=== PATIENT | female | born 1960 | race Caucasian/White ===

== ENCOUNTER 2023-07-14 13:30 | Emergency (ER) | payer BC, SELFPAY ==
[2023-07-14 13:31] VITALS: BP 136/89
[2023-07-14 13:45] LABS: % Basophils 0.6 % (0-2); % Eosinophils 1.3 % (0-6); % Immature Granulocytes 0.3 % (0-0.5); % Lymphocytes 16.4 % (20.5-51.1); % Neutrophils 72.4 % (42.2-75.2); Absolute Basophils 0.1 10^3/uL (0-0.2); Absolute Eosinophils 0.1 10^3/uL (0-0.7); Absolute Lymphocytes 1.6 10^3/uL (1.2-3.4); Absolute Monocytes 0.9 10^3/uL (0.1-0.6); Absolute Neutrophils 7.1 10^3/uL (1.4-6.5); Hematocrit 39.8 % (37.0-47.0); Hemoglobin 14.1 g/dL (12.0-16.0); Mean Corp Hgb Conc. 35.4 g/dL (33.0-37.0); Mean Corpuscular Hgb 33.4 pg (27.0-31.0); Mean Corpuscular Volume 94.3 fL (81.0-99.0); Mean Platelet Volume 9.9 fL (7.4-10.4); Nucleated Red Blood Cells % 0 %; Platelet Count 210 10^3/uL (130-400); Red Blood Cell Count 4.22 10^6/uL (4.20-5.40); White Blood Cell Count 9.8 10^3/uL (4.8-10.8)
[2023-07-14 14:06] LABS: ALT (SGPT) 14 U/L (0-35); AST (SGOT) 18 U/L (14-36); Albumin 4.4 g/dl (3.5-5.0); Alkaline Phosphatase 65 U/L (38-126); Blood Urea Nitrogen 13 mg/dl (7-17); Calcium 9.4 mg/dl (8.4-10.2); Carbon Dioxide 28 mmol/L (22-30); Chloride 104 mmol/L (98-107); Glucose 107 mg/dl (70-99); Lipase 118 U/L (23-300); Sodium 136 mmol/L (135-145); Total Bilirubin 0.8 mg/dl (0.2-1.3); Total Protein 6.9 g/dl (6.3-8.2); eGFR > 60.00
--- NOTE | 2023-07-14 16:09 | EDRN ---
Dr. Nuñez in room w/ pt.
--- NOTE | 2023-07-14 16:11 | ED.GENMED ---
History of Present Illness
General
Chief Complaint: Abdominal Pain
Source: patient and family
Exam Limitations: none
Time Seen by Provider: 07/14/23 16:00
Nursing documentation reviewed up to this point in time: agreed with
Travel History
Have you had any contact with someone who has COVID-19?: No
Do you have any symptoms of coronavirus? Fever > 100 degrees, chills, cough, shortness of breath, sore throat, loss of taste or smell, muscle aches, or headache?: No
History of Present Illness
History of Present Illness:
63-year-old female presents with abdominal symptoms for about 2 weeks she is felt bloated past day or so she is lost her appetite had a fever has pain in her right greater than left lower abdomen somewhat reminiscent of her prior diverticulitis,
several episodes never seen a surgeon states she is up-to-date with her colonoscopies, no dysuria or frequency, she has had 3 C-sections, no other surgeries does not drink or smoke
Past History
Past History
ED Past Medical History: NIDDM, Hypothyroidism, Other (Migraines) and Other (divverticulitis); Negative IDDM
ED Past Surgical History: (X3) and Orthopedic (L knee Orthoscopic surgery)
Social History
Tobacco: Non-smoker
Alcohol: None
Drug: None
Personal:
Living: with family
Employment: Employed
Family History
Family History: Hypertension
Review of Systems
Review of Systems
All Other Systems: ROS reviewed and negative except as documented in HPI and ROS
Constitutional: Reports fever
ABD/GI: Reports abdominal pain and anorexia
Phy Exam
Physical Exam
Physical Exam:
Physical Exam
General: no apparent distress, not acutely ill
Neck: No jaundice
Heart: s1/s2 regular rate and rhythm, no murmur. equal radial pulses.
Lungs: no acute respiratory distress. clear bilaterally
Abdomen: Tender in the right greater than left lower
Neuro: alert and oriented. no focal neurological deficits
Skin: no rash
Psychiatric: well kept. interactive and cooperative
Extremities: no edema.
Course
Orders/Labs/Results
Orders:
Orders
07/14/23 13:36
Comprehensive Metabolic Panel Urgent
Lipase Urgent
07/14/23 13:37
Complete Blood Count/With Diff Urgent
07/14/23 16:07
CT Abd/Pel (IV only)-DH only Urgent
Comment:
Reason For Exam: pain
Urinalysis Reflex To Culture Urgent
0.9% Sodium Chloride 1000 ml [Nss] 1,000 ml IV BOLUS
HYDROmorphone [Dilaudid] 0.5 mg IV NOW STA
Ketorolac [Toradol] 15 mg IV NOW STA
Ondansetron Injectable [Zofran] 4 mg IV NOW STA
07/14/23 18:04
LevoFLOXacin [Levaquin] 500 mg PO NOW STA
MetroNIDAZOLE [Flagyl] 250 mg PO NOW STA
Abnormal Lab Results
07/14/23 07/14/23
13:36 13:37
MCH 33.4 H pg
(27.0-31.0)
Absolute Neuts (auto) 7.1 H 10^3/uL
(1.4-6.5)
Absolute Monos (auto) 0.9 H 10^3/uL
(0.1-0.6)
Lymphocytes % 16.4 L %
(20.5-51.1)
Glucose 107 H mg/dl
(70-99)
07/14/23 13:37
07/14/23 13:36
Vital Signs
Initial and Last Documented VS:
Initial Vital Signs
Temp Pulse Resp BP Pulse Ox
99.4 F 91 16 136/89 98
07/14/23 13:31 07/14/23 13:31 07/14/23 13:31 07/14/23 13:31 07/14/23 13:31
Last Documented Vital Signs
Temp Pulse Resp BP Pulse Ox
99.4 F 79 16 103/65 97
07/14/23 13:31 07/14/23 16:25 07/14/23 16:25 07/14/23 16:25 07/14/23 16:25
MDM/Problems Addressed
Differential Diagnosis Includes:
Diverticulitis appendicitis colitis
MDM/Problems Addressed:
Abdominal
Chronic conditions affecting care:
Diverticular
Chronic conditions affecting care: Previous abdomnial surgery
Acute Exacerbation and/or Progression of Chronic Illness: Previous abdomnial surgery
*Radiology
Radiology exam reviewed: preliminary read by ED provider
*Pulse Oximetry
Patient hypoxic: no
*Critical Care Note
Total Time (30-74mins, 75-104mins- exclusive of procedures): Not Applicable
Update Note
Update Note:
Update, CT noted, reviewed with patient she was actually scheduled for surgery for Dr. Burrows but canceled it due to COVID
She is anxious to go home abdomen soft she is feeling much better
ED Attending Note
-
Portions of this chart may have been created with voice recognition software.� Occasional wrong word or��sound alike� substitutions may have occurred due to the inherent limitations of voice recognition software.
Discharge Plan
Departure
Patient Disposition: Home (Routine Discharge)
Date of Disposition: 07/14/23
Time of Disposition: 18:05
Patient with high blood pressure during this ER visit?: No
Condition: Good
Discharge Problem:
Diverticulitis
Instructions: Diverticulitis (DC)
Prescriptions:
New
metronidazole 250 mg tablet
250 mg PO Q8H Qty: 20 0RF
levofloxacin 500 mg tablet
500 mg PO DAILY Qty: 7 0RF
oxycodone-acetaminophen [Percocet] 5-325 mg tablet
1 tab PO Q6HPRN PRN (Reason: pain) Qty: 10 0RF
No Action
metronidazole 500 MG tablet
500 mg PO TID Qty: 21 0RF
levofloxacin 500 MG tablet
500 mg PO DAILY Qty: 7 0RF
metronidazole 500 MG tablet
500 mg PO TID Qty: 30 0RF
levofloxacin 500 MG tablet
500 mg PO DAILY Qty: 10 0RF
hydrocodone-acetaminophen 1 TABLET tablet
1 tab PO Q4HPRN PRN (Reason: severe pain) Qty: 8 0RF
azithromycin [Zithromax] 250 mg tablet
250 mg PO DAILY Qty: 6 0RF
Rx Instructions:
500mg PO day 1, then 250mg qd x 4d
methylprednisolone [Medrol (Gage)] 4 mg tablets,dose pack
See Rx Instructions .ROUTE .COMPLEX Qty: 21 0RF
Rx Instructions:
orally per package directions
Referrals:
Thierry Burrows MD [Active] - Follow up in 10 days
Markos Delaney MD [Family Provider] -
Interventions
Interventions:
*Risk Screen - Suicide Last Done: 07/14/23 16:25
*General Assessment Last Done: 07/14/23 16:25
*Neglect/Abuse Screening Last Done: 07/14/23 16:25
ED- Fall Risk Assessment Last Done: 07/14/23 16:25
*ED COVID-19 Vaccine History Last Done: 07/14/23 16:25
LI-Yyzlfl-Ltwqxhmtde Assessment Last Done: 07/14/23 16:25
[2023-07-14 16:25] VITALS: BP 103/65
[2023-07-14] MEDS: NSS 1000 IV (16:29)
[2023-07-14] MEDS: DILAUDID 0.5 MG IV (16:36)
[2023-07-14] MEDS: TORADOL 15 MG IV (16:36)
[2023-07-14] MEDS: ZOFRAN 4 MG IV (16:36)
[2023-07-14 17:00] VITALS: BP 121/71
[2023-07-14 17:40] VITALS: BP 93/57
[2023-07-14 18:00] VITALS: BP 106/72
--- NOTE | 2023-07-14 18:15 | EDRN ---
Dr. Nuñez was in to see pt at this time.
--- NOTE | 2023-07-14 18:43 | EDRN ---
Flagyl 250 mg not in pyxus so pharmacy called to send dose.
[2023-07-14] MEDS: FLAGYL 250 MG PO (19:08)
[2023-07-14] MEDS: LEVAQUIN 500 MG PO (19:09)
[2023-07-14 19:12] VITALS: BP 103/66
== END 2023-07-14 19:25 | disposition home or self-care (01) ==
LOC: EMR 13:30
PROVIDERS: Emergency Medicine; EMERGENCY PHYSICIAN Emergency Medicine; FAMILY PHYSICIAN Family Medicine
DX: K57.92 Diverticulitis of intestine, part unspecified, without perforation or abscess without bleeding (principal); E11.9 Type 2 diabetes mellitus without complications; E03.9 Hypothyroidism, unspecified; Z82.49 Family history of ischemic heart disease and other diseases of the circulatory system
CPT/HCPCS: 99284; 96374; 96375; 96361; 74177; 80053; 83690; 85025; Q9967

== ENCOUNTER 2023-07-24 11:45 | Emergency (ER) | payer BC, SELFPAY ==
[2023-07-24 11:47] VITALS: BP 141/99
[2023-07-24 12:22] VITALS: BMI 26.4
[2023-07-24 12:24] VITALS: BP 132/81
--- NOTE | 2023-07-24 12:29 | ED.GENMED ---
History of Present Illness
<Rosetta Turner PA-C - Last Filed: 07/28/23 10:54>
General
Chief Complaint: Skin Surface Trauma
Source: patient
Exam Limitations: none
Time Seen by Provider: 07/24/23 12:03
Nursing documentation reviewed up to this point in time: agreed with
Travel History
Have you had any contact with someone who has COVID-19?: No
Do you have any symptoms of coronavirus? Fever > 100 degrees, chills, cough, shortness of breath, sore throat, loss of taste or smell, muscle aches, or headache?: No
History of Present Illness
History of Present Illness:
Patient is a 63-year-old female with history diverticulitis, diabetes, hypothyroid presenting for evaluation of finger laceration. Patient reports that she cut herself with her kitchen knife yesterday evening, washed and covered with Band-Aid. She
became worried about laceration this morning. On initial inspection of finger�patient reports that she started having some chest discomfort and palpitations earlier this morning around 7 AM which also led her to seek care in the emergency
department today. She denies any exertional component to symptoms. No pleuritic component. She denies any shortness of breath, fever, chills, dizziness, headache, back pain.
Of note�patient recently completed course of antibiotics for diverticulitis. She states her abdominal pain is much improved. No nausea, vomiting, abdominal pain.
Patient has no personal history of cardiac problems. She has seen a nuclear physics professor many years ago.
Past History
<Rosetta Turner PA-C - Last Filed: 07/28/23 10:54>
Past History
ED Past Medical History: NIDDM, Hypothyroidism, Other (Migraines) and Other (divverticulitis); Negative IDDM
ED Past Surgical History: (X3) and Orthopedic (L knee Orthoscopic surgery)
Social History
Tobacco: Non-smoker
Alcohol: None
Drug: None
Personal:
Living: with family
Employment: Employed
Family History
Family History: Hypertension
Phy Exam
<Rosetta Turner PA-C - Last Filed: 07/28/23 10:54>
Physical Exam
Physical Exam:
General: Well appearing and non-toxic
Vitals: Hypertensive, otherwise vital signs stable, afebrile
HEENT: Atraumatic, normocephalic; pupils equal round reactive to light bilaterally, protecting airway
Neck: appears supple, no JVD
CV: Regular rate and rhythm, heart sounds normal, no evidence of cyanosis
Resp: Lungs clear, no evidence of respiratory distress
Abd: Soft, nontender in all 4 quadrants, non-distended; no CVA tenderness
Extremities: No deformities, no evidence of cyanosis or edema; DP pulses palpable and equal bilaterally
Neuro: alert and oriented x 3; grossly intact
Psych: Normal affect
Skin: Approximately 1.5 cm healing laceration on left palmar index finger; not active bleeding; left hand neurovascular intact
Course
<Rosetta Turner PA-C - Last Filed: 07/28/23 10:54>
Orders/Labs/Results
Orders:
Orders
07/24/23 12:15
Electrocardiogram (*1) Urgent
Reason for Study: Palpitations
EKG- Treatment ONCE
07/24/23 12:32
Complete Blood Count/With Diff Urgent
Comprehensive Metabolic Panel Urgent
TSH Reflex To Free T4 Urgent
Troponin I Urgent
Abnormal Lab Results
07/24/23
12:32
MCH 33.3 H pg
(27.0-31.0)
Glucose 102 H mg/dl
(70-99)
07/24/23 12:32
07/24/23 12:32
Vital Signs
Initial and Last Documented VS:
Initial Vital Signs
Temp Pulse Resp BP Pulse Ox
98.1 F 92 18 141/99 100
07/24/23 11:47 07/24/23 11:47 07/24/23 11:47 07/24/23 11:47 07/24/23 11:47
Last Documented Vital Signs
Temp Pulse Resp BP Pulse Ox
98.1 F 72 22 114/78 99
07/24/23 11:47 07/24/23 13:45 07/24/23 13:45 07/24/23 13:00 07/24/23 13:45
<Jose Roberto Infante, DO - Last Filed: 07/24/23 13:12>
Orders/Labs/Results
Orders:
Orders
07/24/23 12:15
Electrocardiogram (*1) Urgent
Reason for Study: Palpitations
EKG- Treatment ONCE
07/24/23 12:32
Complete Blood Count/With Diff Urgent
Comprehensive Metabolic Panel Urgent
TSH Reflex To Free T4 Urgent
Troponin I Urgent
Abnormal Lab Results
07/24/23
12:32
MCH 33.3 H pg
(27.0-31.0)
Glucose 102 H mg/dl
(70-99)
07/24/23 12:32
07/24/23 12:32
Vital Signs
Initial and Last Documented VS:
Initial Vital Signs
Temp Pulse Resp BP Pulse Ox
98.1 F 92 18 141/99 100
07/24/23 11:47 07/24/23 11:47 07/24/23 11:47 07/24/23 11:47 07/24/23 11:47
Last Documented Vital Signs
Temp Pulse Resp BP Pulse Ox
98.1 F 72 22 114/78 99
07/24/23 11:47 07/24/23 13:45 07/24/23 13:45 07/24/23 13:00 07/24/23 13:45
<Rosetta Turner PA-C - Last Filed: 07/28/23 10:54>
MDM/Problems Addressed
Differential Diagnosis Includes:
Finger laceration, arrhythmia, anxiety, costochondritis, doubt ACS or PE
MDM/Problems Addressed:
Patient is a 63-year-old female presenting for evaluation of chest discomfort and heart palpitations. Symptoms started acutely around 7:30 AM this morning. She also endorses a laceration to her left index finger that occurred last night when using
it in the kitchen. Chest pain has no exertional component or pleuritic component. She is attributing the heart palpitations to possible anxiety rated to cut on finger. Patient has stable vital signs, mildly hypertensive, afebrile. Physical exam
as document above. Heart regular rate and rhythm, lungs clear. No evidence of DVT on exam. She does have a healing 1.5 cm laceration on left pointer finger without any active bleeding.
Will irrigate, bandage, splint left pointer finger. Laceration essentially closed upon arrival.
Given acute onset cardiac symptoms�will check basic labs, EKG, troponin. Will check TSH.
CBC and CMP without any clinically significant abnormalities. TSH within normal limits. Initial troponin negative. Given symptoms have been present since 730 this morning�this is sufficient to rule out acute IA. EKG shows normal sinus rhythm
without signs of ischemia.
Into discussed findings with patient. Workup has been negative. Will arrange close cardiology follow-up with chest pain hotline. Patient stable for discharge with return precautions. Wound care discussed. Stable for discharge.
Update: Finger splint was applied to left index finger.
Chronic conditions affecting care:
N/A
Acute Exacerbation and/or Progression of Chronic Illness:
N/A
<Rosetta Turner PA-C - Last Filed: 07/28/23 10:54>
*Pulse Oximetry
Patient hypoxic: no
*EKG
Interpreted by ED Provider?: Yes
EKG Intrepretation Date: 07/24/23
Interpretation: normal
Comparison EKG: no changes
Heart Rate: 78
Rate: normal
Rhythm: sinus
QRS Pattern: low voltage
Ischemia: no ischemia
*Retort Operator Interpretation
Rate: normal
Interpretation: normal
Heart Rate: 74
Rhythm: sinus
*Critical Care Note
Total Time (30-74mins, 75-104mins- exclusive of procedures): Not Applicable
ED Attending Note
<Rosetta Turner PA-C - Last Filed: 07/28/23 10:54>
-
Portions of this chart may have been created with voice recognition software.� Occasional wrong word or��sound alike� substitutions may have occurred due to the inherent limitations of voice recognition software.
<Jose Roberto Infante DO - Last Filed: 07/24/23 13:12>
ED Attending Note
Patient seen and examined by attending physician: Yes
I performed the substantive portion of visit, reviewed & personally made and approve the management plan that is documented in note by myself or PORFIRIO.: Yes
ED Attending Note:
I have seen and evaluated the patient with a [id number] encounter. I have spoken to the advance practicer provider and involved in the medical history, the physical exam, medical decision making.
Evaluation and management service: agree unless noted differently below.
Results interpretation: agree unless noted differently below.
Focused HPI: 63-year-old female presenting with chest discomfort. Patient denies exertional component. Patient does admit that she got worried and wanted to make sure things okay
Physical exam: Sitting in bed comfortably. Heart regular rate and rhythm. Abdomen soft nontender. No leg edema
Medical Decision Making: EKG nonischemic. Given duration of symptoms, will obtain troponin and place on cardiac callback tracker.
Discharge Plan
Departure
Patient Disposition: Home (Routine Discharge)
Date of Disposition: 07/24/23
Time of Disposition: 14:01
Patient with high blood pressure during this ER visit?: No
Condition: Good
Covid-19: Not Applicable
Discharge Problem:
Heart palpitations, Laceration
Instructions: Chest Pain CBC Follow Up, BLOOD PRESSURE
Prescriptions:
No Action
metronidazole 500 MG tablet
500 mg PO TID Qty: 21 0RF
levofloxacin 500 MG tablet
500 mg PO DAILY Qty: 7 0RF
metronidazole 500 MG tablet
500 mg PO TID Qty: 30 0RF
levofloxacin 500 MG tablet
500 mg PO DAILY Qty: 10 0RF
hydrocodone-acetaminophen 1 TABLET tablet
1 tab PO Q4HPRN PRN (Reason: severe pain) Qty: 8 0RF
azithromycin [Zithromax] 250 mg tablet
250 mg PO DAILY Qty: 6 0RF
Rx Instructions:
500mg PO day 1, then 250mg qd x 4d
methylprednisolone [Medrol (Gage)] 4 mg tablets,dose pack
See Rx Instructions .ROUTE .COMPLEX Qty: 21 0RF
Rx Instructions:
orally per package directions
metronidazole 250 mg tablet
250 mg PO Q8H Qty: 20 0RF
levofloxacin 500 mg tablet
500 mg PO DAILY Qty: 7 0RF
oxycodone-acetaminophen [Percocet] 5-325 mg tablet
1 tab PO Q6HPRN PRN (Reason: pain) Qty: 10 0RF
Referrals:
Markos Delaney MD [Family Provider] -
Activity Restrictions/Additional Instructions:
- Return to the emergency department with any chest pain, shortness of breath, high fevers, severe abdominal pain, intractable nausea/vomiting, signs of infection, worsening in current symptoms, or any other concerns
-You should keep laceration clean and dry. Wash daily with soap and water. Keep covered until healed
-Follow-up with primary care/cardiology further evaluation/management. You should receive a call for an appointment nuclear physics professor in the next 2 days.
Interventions
Interventions:
*Risk Screen - Suicide Last Done: 07/24/23 11:47
*General Assessment Last Done: 07/24/23 11:47
*Neglect/Abuse Screening Last Done: 07/24/23 11:47
ED- Fall Risk Assessment Last Done: 07/24/23 12:22
*ED COVID-19 Vaccine History Last Done: 07/24/23 11:47
*Nursing Disposition Last Done: 07/24/23 14:26
ED-Skin Assessment Last Done: 07/24/23 12:22
Discharge Date and Time
Discharge Date/Time: 07/24/23 14:26
[2023-07-24 12:54] LABS: % Basophils 1.1 % (0-2); % Eosinophils 1.4 % (0-6); % Immature Granulocytes 0.5 % (0-0.5); % Lymphocytes 25.2 % (20.5-51.1); % Monocytes 7.1 % (1.7-9.3); % Neutrophils 64.7 % (42.2-75.2); Absolute Basophils 0.1 10^3/uL (0-0.2); Absolute Eosinophils 0.1 10^3/uL (0-0.7); Absolute Lymphocytes 1.6 10^3/uL (1.2-3.4); Absolute Monocytes 0.4 10^3/uL (0.1-0.6); Hematocrit 41.5 % (37.0-47.0); Hemoglobin 14.7 g/dL (12.0-16.0); Mean Corp Hgb Conc. 35.4 g/dL (33.0-37.0); Mean Corpuscular Hgb 33.3 pg (27.0-31.0); Mean Corpuscular Volume 93.9 fL (81.0-99.0); Mean Platelet Volume 9.9 fL (7.4-10.4); Nucleated Red Blood Cells % 0 %; Platelet Count 279 10^3/uL (130-400); Red Blood Cell Count 4.42 10^6/uL (4.20-5.40); Red Cell Dist. Width 12.7 % (11.5-14.5); White Blood Cell Count 6.2 10^3/uL (4.8-10.8)
[2023-07-24 13:00] VITALS: BP 114/78
[2023-07-24 13:13] LABS: ALT (SGPT) 27 U/L (0-35); AST (SGOT) 28 U/L (14-36); Albumin 4.7 g/dl (3.5-5.0); Alkaline Phosphatase 74 U/L (38-126); Blood Urea Nitrogen 11 mg/dl (7-17); Calcium 9.5 mg/dl (8.4-10.2); Carbon Dioxide 27 mmol/L (22-30); Chloride 105 mmol/L (98-107); Estimated Creatinine Clearance 74 ml/min; Glucose 102 mg/dl (70-99); Sodium 138 mmol/L (135-145); Total Bilirubin 0.6 mg/dl (0.2-1.3); Total Protein 7.3 g/dl (6.3-8.2); eGFR > 60.00
[2023-07-24 13:23] LABS: Troponin I < 0.012 ng/ml
[2023-07-24 13:42] LABS: TSH Reflex To Free T4 2.82 uIU/ml (0.47-4.68)
== END 2023-07-24 14:26 | disposition home or self-care (01) ==
LOC: EMR 11:45
PROVIDERS: Physician Assistant; EMERGENCY PHYSICIAN Student in an Organized Health Care Education/Training Program; FAMILY PHYSICIAN Family Medicine
DX: R00.2 Palpitations (principal); S61.211A Laceration without foreign body of left index finger without damage to nail, initial encounter; X58.XXXA Exposure to other specified factors, initial encounter
CPT/HCPCS: 99284; 29130; 80053; 84443; 84484; 85025; 93005

== ENCOUNTER 2025-01-09 08:55 | Emergency (ER) | payer BC, SELFPAY ==
[2025-01-09 09:02] VITALS: BP 160/99
[2025-01-09 09:18] VITALS: BP 146/82
[2025-01-09 09:53] LABS: Hematocrit 43.4 % (37.0-47.0); Hemoglobin 14.8 g/dL (12.0-16.0); Mean Corp Hgb Conc. 34.1 g/dL (33.0-37.0); Mean Corpuscular Volume 97.5 fL (81.0-99.0); Nucleated Red Blood Cells % 0 %; Platelet Count 229 10^3/uL (130-400); Red Cell Dist. Width 13.7 % (11.5-14.5)
[2025-01-09 10:05] VITALS: BP 134/78
[2025-01-09 10:21] LABS: ALT (SGPT) 16 U/L (0-35); AST (SGOT) 18 U/L (14-36); Albumin 4.9 g/dl (3.5-5.0); Alkaline Phosphatase 66 U/L (38-126); Blood Urea Nitrogen 13 mg/dl (7-17); Calcium 9.8 mg/dl (8.4-10.2); Carbon Dioxide 26 mmol/L (22-30); Chloride 108 mmol/L (98-107); Glucose 113 mg/dl (70-99); Potassium 4.3 mmol/L (3.5-5.1); Sodium 142 mmol/L (135-145); Total Protein 7.3 g/dl (6.3-8.2); eGFR > 60.00
[2025-01-09] MEDS: TORADOL 15 MG IV (10:50)
[2025-01-09 11:00] VITALS: BP 130/84
[2025-01-09 12:00] VITALS: BP 118/75
--- NOTE | 2025-01-09 12:21 | ED.GENMED ---
History of Present Illness
General
Chief Complaint: Headache
Source: patient
Time Seen by Provider: 01/09/25 09:14
History of Present Illness
History of Present Illness:
64-year-old female presents for evaluation of an episode that occurred prior to arrival. She developed a flash of light in her right eye followed by some blurry vision and lightheadedness and since then she has been left with frontal pain. The
vision is since resolved and has returned to normal. She denies any unilateral numbness or weakness. At the onset of her symptoms she had tingling and numbness to the hands and feet bilaterally. This has resolved as well. No neck pain or fever.
She is a smoker but no other medical problems.
Past History
Past History
ED Past Medical History: NIDDM, Hypothyroidism, Other (Migraines) and Other (divverticulitis); Negative IDDM
ED Past Surgical History: (X3) and Orthopedic (L knee Orthoscopic surgery)
Social History
Tobacco: Non-smoker
Alcohol: None
Drug: None
Personal:
Living: with family
Employment: Employed
Family History
Family History: Hypertension
Phy Exam
Physical Exam
Physical Exam:
General: Well-appearing female no acute respiratory distress
HEENT: Normal cephalic pupils equal round reactive to light extraocular's are intact visual lay intact finger-nose frgh-ol-uyud intact. Alert and oriented x 3 no dysarthria or aphasia no nuchal rigidity
Heart: Regular rate and rhythm lungs: Clear no wheeze
Course
Orders/Labs/Results
Orders:
Orders
01/09/25 09:36
Electrocardiogram (*1) Urgent
Reason for Study: TIA/Stroke
CT Head W/o Iv Contrast Urgent
Comment:
Reason For Exam: headache, blurry vision
EKG- Treatment ONCE
01/09/25 09:38
Complete Blood Count/With Diff Urgent
01/09/25 09:54
Comprehensive Metabolic Panel Urgent
01/09/25 10:43
Ketorolac [Toradol] 15 mg .ROUTE .STK-MED ONE
Ketorolac [Toradol] 15 mg IV NOW STA
Abnormal Lab Results
01/09/25 01/09/25
09:38 09:54
MCH 33.3 H pg
(27.0-31.0)
MPV 10.5 H fL
(7.4-10.4)
Chloride 108 H mmol/L
(98-107)
Glucose 113 H mg/dl
(70-99)
01/09/25 09:38
01/09/25 09:54
Vital Signs
Initial and Last Documented VS:
Initial Vital Signs
Temp Pulse Resp BP Pulse Ox
98.1 F 69 16 160/99 98
01/09/25 09:02 01/09/25 09:02 01/09/25 09:02 01/09/25 09:02 01/09/25 09:02
Last Documented Vital Signs
Temp Pulse Resp BP Pulse Ox
98.1 F 61 19 118/75 96
01/09/25 09:02 01/09/25 12:00 01/09/25 12:00 01/09/25 12:00 01/09/25 11:45
MDM/Problems Addressed
Differential Diagnosis Includes:
Vision disturbance followed by headache question migraine unlikely to be stroke no fever to suggest infectious source. Symptoms have resolved nearly. Will give Toradol for pain check labs and CT of the head
*Pulse Oximetry
SaO2: 96
Oxygen Mode of Delivery: Room air
Patient hypoxic: no
*Critical Care Note
Total Time (30-74mins, 75-104mins- exclusive of procedures): Not Applicable
Update Note
Update Note:
CT negative. Patient had improvement of symptoms with Toradol. Suspect atypical migraine. No neurologic deficit on exam to suggest CVA. Recommend follow-up with family doctor. Stable for discharge. Discussed with ED attending.
ED Attending Note
-
Portions of this chart may have been created with voice recognition software.� Occasional wrong word or��sound alike� substitutions may have occurred due to the inherent limitations of voice recognition software.
Discharge Plan
Departure
Patient Disposition: Home (Routine Discharge)
Date of Disposition: 01/09/25
Time of Disposition: 12:21
Patient with high blood pressure during this ER visit?: No
Discharge Problem:
Headache
Instructions: Migraines (DC)
Prescriptions:
No Action
No Current Medications
0
Referrals:
Markos Delaney MD [Family Provider, [facility]]
Activity Restrictions/Additional Instructions:
Return here if needed you may use [id number] medications if needed for pain. Follow-up with your family doctor otherwise
Interventions
Interventions:
*Risk Screen - Suicide Last Done: 01/09/25 09:02
*General Assessment Last Done: 01/09/25 09:24
*Neglect/Abuse Screening Last Done: 01/09/25 09:02
*ED- Fall Risk Assessment Last Done: 01/09/25 09:24
*ED COVID-19 Vaccine History Last Done: 01/09/25 09:24
ED- Neurological Assessment Last Done: 01/09/25 09:24
Discharge Date and Time
Print Language: SAMOAN
== END 2025-01-09 12:36 | disposition home or self-care (01) ==
LOC: EMR 08:55
PROVIDERS: Physician Assistant; EMERGENCY PHYSICIAN Student in an Organized Health Care Education/Training Program; FAMILY PHYSICIAN Family Medicine
DX: R51.9 Headache, unspecified (principal); E11.9 Type 2 diabetes mellitus without complications; E03.9 Hypothyroidism, unspecified; F17.200 Nicotine dependence, unspecified, uncomplicated
CPT/HCPCS: 99284; 96374; 70450; 80053; 85025; 93005

== ENCOUNTER 2025-01-22 04:20 | Emergency (ER) | payer BC, SELFPAY ==
--- NOTE | 2025-01-22 04:30 | ED.GENMED ---
History of Present Illness
<Tameka Rodriguez PA-C - Last Filed: 01/22/25 09:38>
General
Chief Complaint: Abdominal Pain
Source: patient
Exam Limitations: none
Time Seen by Provider: 01/22/25 04:29
Nursing documentation reviewed up to this point in time: agreed with
History of Present Illness
History of Present Illness:
The patient is a 65-year-old female with pmh of pancreatitis, diabetes, depression, who presents with complaints of abdominal pain. She reports that the pain began suddenly and strongly last night, noting that it progressively worsened, described as
'Tyra had diverticulitis before. It feels like that.' The pain is located primarily in the lower abdomen and comes in waves. She has experienced multiple episodes of vomiting and has been unable to find relief, stating, 'I got up probably five or six
times since like nine oclock.' Past experiences with similar pain were associated with diverticulitis. She denies any fever, urinary symptoms such as burning or frequency, or any bloody stools. The patient also noted stiffness and severe discomfort
which sometimes improved with flexing her knees. She mentioned a recent history of a severe migraine for which she received a medication in the ER that was ineffective but did not remember its name � possibly Toradol (Ketorolac) as suggested by her
description. She is concerned about possible reaction to toradol and is requesting different pain medication. She denies fevers or chills, bloody stools, sick contacts. She did have a few episodes of diarrhea. She denies any recent antibiotics. She
denies any hx of intra-abdominal surgeries.
Past History
<Tameka Rodriguez PA-C - Last Filed: 01/22/25 09:38>
Past History
ED Past Medical History: NIDDM, Hypothyroidism, Other (Migraines) and Other (divverticulitis); Negative IDDM
ED Past Surgical History: (X3) and Orthopedic (L knee Orthoscopic surgery)
Social History
Tobacco: Non-smoker
Alcohol: None
Drug: None
Personal:
Living: with family
Employment: Employed
Family History
Family History: Hypertension
Review of Systems
<Tameka Rodriguez PA-C - Last Filed: 01/22/25 09:38>
Review of Systems
All Other Systems: ROS reviewed and negative except as documented in HPI and ROS
Phy Exam
<Tameka Rodriguez PA-C - Last Filed: 01/22/25 09:38>
Physical Exam
Physical Exam:
General: Patient is well appearing and in no acute distress; non-toxic
Skin: Warm and dry, no rashes or lesions
Head: Normocephalic, atraumatic
Eyes: Sclera non-icteric. EOMs intact.
Cardiac: Regular rate and rhythm, no murmurs
Peripheral Vascular: No lower extremity swelling or edema
Pulm: Normal respiratory effort, no wheezes, rales, or rhonchi
Abdomen: Abdomen soft, no palpable abdominal masses, mild lower abdominal tenderness palpation, normoactive bowel sounds
Neuro: CN II-XII intact, no focal neurologic deficits.
Psychiatric: Appropriate mood and affect.
Course
<Tameka Rodriguez PA-C - Last Filed: 01/22/25 09:38>
Orders/Labs/Results
Orders:
Orders
01/22/25 04:44
CT Abd/pelvis W Iv Cont Urgent
Comment:
Reason For Exam: right sided lower ab pain
0.9% Sodium Chloride 500 ml [Nss] 500 ml IV BOLUS
Morphine Sulfate 2 mg IV NOW STA
Ondansetron Injectable [Zofran] 4 mg IV NOW STA
Test Result ONCE
01/22/25 04:46
Complete Blood Count/With Diff Urgent
Comprehensive Metabolic Panel Urgent
Lipase Urgent
01/22/25 05:52
Urinalysis Reflex To Culture Urgent
Date Specimen was Collected: 01/22/25
Time Specimen was Collected: 05:50
Urine Microscopic Reflex Cult Urgent
01/22/25 07:25
Lactic Acid Urgent
Abnormal Lab Results
01/22/25 01/22/25
04:46 05:52
WBC 11.1 H 10^3/uL
(4.8-10.8)
MCH 33.4 H pg
(27.0-31.0)
Absolute Neuts (auto) 9.0 H 10^3/uL
(1.4-6.5)
Neutrophils % 81.0 H %
(42.2-75.2)
Lymphocytes % 11.7 L %
(20.5-51.1)
Chloride 108 H mmol/L
(98-107)
Glucose 123 H mg/dl
(70-99)
Urine Bacteria (Reflex) Few A
(Negative)
Urine Albumin (Reflex) 1+ A
(Neg - Trace)
01/22/25 04:46
01/22/25 04:46
Vital Signs
Initial and Last Documented VS:
Initial Vital Signs
Temp
98.4 F
01/22/25 04:22
Last Documented Vital Signs
Temp Pulse Resp BP Pulse Ox
98.4 F 63 16 120/71 96
01/22/25 04:22 01/22/25 09:00 01/22/25 09:00 01/22/25 09:00 01/22/25 09:00
<Bob Morse MD - Last Filed: 01/22/25 09:21>
Orders/Labs/Results
Orders:
Orders
01/22/25 04:44
CT Abd/pelvis W Iv Cont Urgent
Comment:
Reason For Exam: right sided lower ab pain
0.9% Sodium Chloride 500 ml [Nss] 500 ml IV BOLUS
Morphine Sulfate 2 mg IV NOW STA
Ondansetron Injectable [Zofran] 4 mg IV NOW STA
Test Result ONCE
01/22/25 04:46
Complete Blood Count/With Diff Urgent
Comprehensive Metabolic Panel Urgent
Lipase Urgent
01/22/25 05:52
Urinalysis Reflex To Culture Urgent
Date Specimen was Collected: 01/22/25
Time Specimen was Collected: 05:50
Urine Microscopic Reflex Cult Urgent
01/22/25 07:25
Lactic Acid Urgent
Abnormal Lab Results
01/22/25 01/22/25
04:46 05:52
WBC 11.1 H 10^3/uL
(4.8-10.8)
MCH 33.4 H pg
(27.0-31.0)
Absolute Neuts (auto) 9.0 H 10^3/uL
(1.4-6.5)
Neutrophils % 81.0 H %
(42.2-75.2)
Lymphocytes % 11.7 L %
(20.5-51.1)
Chloride 108 H mmol/L
(98-107)
Glucose 123 H mg/dl
(70-99)
Urine Bacteria (Reflex) Few A
(Negative)
Urine Albumin (Reflex) 1+ A
(Neg - Trace)
01/22/25 04:46
01/22/25 04:46
Vital Signs
Initial and Last Documented VS:
Initial Vital Signs
Temp
98.4 F
01/22/25 04:22
Last Documented Vital Signs
Temp Pulse Resp BP Pulse Ox
98.4 F 63 16 120/71 96
01/22/25 04:22 01/22/25 09:00 01/22/25 09:00 01/22/25 09:00 01/22/25 09:00
<Tameka Rodriguez PA-C - Last Filed: 01/22/25 09:38>
MDM/Problems Addressed
Differential Diagnosis Includes:
ddx include diverticulitis, colitis, gastroenteritis, appendicitis, nephrolithiasis
MDM/Problems Addressed:
65-year-old female with past medical history of diverticulosis, chronic pancreatitis, diabetes, presents emergency department today with concerns of diffuse lower abdominal pain. Is associated with 1 episode of vomiting and occasional diarrhea.
She has no fevers. No recent antibiotics. Diarrhea has subsided. Physical exam she is well-appearing no acute distress. She is afebrile. She has minimal tenderness. Labs reviewed, mild leukocytosis noted. CMP unremarkable. Urinalysis
unremarkable. CT scan results show colitis with features concerning for ischemic colitis. Patient has no other risk factors other than age and diabetes status.
Clinically, her pain completely subsided with 2 mg of morphine. She has not had any further episodes of pain since. Clinical suspicion for ischemia low, suspect infectious colitis. Case signed out to Dr. Morse pending lactic acid.
Chronic conditions affecting care:
diabetes, hypothyroid, diverticulosis, pancreatitis
<Tameka Rodriguez PA-C - Last Filed: 01/22/25 09:38>
*Pulse Oximetry
Patient hypoxic: no
*Critical Care Note
Total Time (30-74mins, 75-104mins- exclusive of procedures): Not Applicable
ED Attending Note
<Tameka Rodriguez PA-C - Last Filed: 01/22/25 09:38>
-
Portions of this chart may have been created with voice recognition software.� Occasional wrong word or��sound alike� substitutions may have occurred due to the inherent limitations of voice recognition software.
<Bob Morse MD - Last Filed: 01/22/25 09:21>
ED Attending Note
Patient seen and examined by attending physician: Yes
ED Attending Note:
Patient presents to ED secondary to persistent abdominal pain, associated with nausea, vomiting, and diarrhea, since last night. Abdominal pain described as pressure, across lower abdomen, without any alleviating or exacerbating factors. Denies
trauma. Denies fever or chills. Denies back pain. Denies difficulty with urination. Denies recent change in medications or diet. Patient states that she has had number of similar symptoms in the past, including last year, when she was treated
for diverticulitis with antibiotics. Patient states that she had colonoscopy 'long time ago'.
Physical Exam
General: mild distress, not acutely ill. afebrile
Head: nc/at. eomi
Neck: supple. normal range of motion.
Heart: s1/s2 regular rate and rhythm
Lungs: no acute respiratory distress. clear bilaterally
Abdomen: normal bowel sounds. not tender. no distention
Neuro: alert and oriented x 3. no focal neurological deficits
Skin: no rash
Psychiatric: well kept. interactive and cooperative
Extremities: no edema. no calf tenderness
CT abdomen pelvis report reviewed and discussed with patient. Lactate pending. Will discuss with GI afterwards. Patient reports improvement in symptoms after treatment. Patient remains afebrile, hemodynamically stable, and nontoxic-appearing
during observation.
Lactate normal. Discussed with on-call GI physician, Dr. Jauregui. Feels the patient, as she is improved clinically, can be discharged home with the following recommendation: Antibiotics, bland diet, and outpatient GI follow-up for potential
colonoscopy. Return precautions provided to patient, i.e. fever/worsening pain/vomiting. Patient otherwise feels comfortable going home.
Discharge Plan
Departure
Patient Disposition: Home (Routine Discharge)
Date of Disposition: 01/22/25
Time of Disposition: 09:15
Patient with high blood pressure during this ER visit?: Yes
Condition: Fair
Discharge Problem:
Colitis
Instructions: Colitis (DC)
Prescriptions:
New
amoxicillin-pot clavulanate 875-125 mg tablet
1 tab PO Q12H Qty: 20 0RF
oxycodone 5 mg tablet
5 mg PO Q8H PRN (Reason: Pain) Qty: 8 0RF
Referrals:
Casey Varma MD [Family Provider, Family Practice]
Elie Jauregui MD [Active, Gastroenterology]
Activity Restrictions/Additional Instructions:
As discussed, please follow-up with your primary care physician and/or referred GI physician for further evaluation and treatment. Please consider return to ED with worsening symptoms, i.e. fever/worsening pain/vomiting. Your prescriptions have
been sent last [facility].
Interventions
Interventions:
*Risk Screen - Suicide Last Done: 01/22/25 04:22
*General Assessment Last Done: 01/22/25 04:37
*Neglect/Abuse Screening Last Done: 01/22/25 04:22
*ED- Fall Risk Assessment Last Done: 01/22/25 04:37
*ED COVID-19 Vaccine History Last Done: 01/22/25 04:37
HK-Jpchnf-Tuwqgxocwe Assessment Last Done: 01/22/25 07:29
Discharge Date and Time
Print Language: DOMINICAN
[2025-01-22 04:33] VITALS: BMI 28.2
[2025-01-22 04:37] VITALS: BP 145/93
[2025-01-22] MEDS: NSS 500 IV (04:52)
[2025-01-22] MEDS: ZOFRAN 4 MG IV (04:54)
[2025-01-22] MEDS: MORPHINE SULFATE 2 MG IV (04:55)
[2025-01-22 05:01] LABS: Hematocrit 42.7 % (37.0-47.0); Hemoglobin 14.9 g/dL (12.0-16.0); Mean Corp Hgb Conc. 34.9 g/dL (33.0-37.0); Mean Corpuscular Volume 95.7 fL (81.0-99.0); Nucleated Red Blood Cells % 0 %; Platelet Count 237 10^3/uL (130-400); Red Cell Dist. Width 13.3 % (11.5-14.5)
[2025-01-22 05:34] LABS: ALT (SGPT) 14 U/L (0-35); AST (SGOT) 20 U/L (14-36); Albumin 4.5 g/dl (3.5-5.0); Alkaline Phosphatase 59 U/L (38-126); Blood Urea Nitrogen 11 mg/dl (7-17); Calcium 9.8 mg/dl (8.4-10.2); Carbon Dioxide 24 mmol/L (22-30); Chloride 108 mmol/L (98-107); Estimated Creatinine Clearance 93 ml/min; Glucose 123 mg/dl (70-99); Lipase 162 U/L (23-300); Potassium 4.7 mmol/L (3.5-5.1); Sodium 140 mmol/L (135-145); Total Protein 7.2 g/dl (6.3-8.2); eGFR > 60.00
[2025-01-22 06:01] LABS: Urine Character Clear (Clear)
[2025-01-22 06:09] LABS: Urine Squamous Cell >30 /LPF (Few)
[2025-01-22 06:11] LABS: Urine Red Blood Cell 0-2 /HPF (0-2); Urine White Cell None Seen /HPF (0-5)
[2025-01-22 07:24] VITALS: BP 114/78
[2025-01-22 08:00] VITALS: BP 121/77
[2025-01-22 09:00] VITALS: BP 120/71
== END 2025-01-22 09:56 | disposition home or self-care (01) ==
LOC: EMR 04:20
PROVIDERS: Physician Assistant; EMERGENCY PHYSICIAN Emergency Medicine; FAMILY PHYSICIAN Family Medicine
DX: K52.9 Noninfective gastroenteritis and colitis, unspecified (principal); R03.0 Elevated blood-pressure reading, without diagnosis of hypertension; E11.9 Type 2 diabetes mellitus without complications; E03.9 Hypothyroidism, unspecified; K86.1 Other chronic pancreatitis; K86.81 Exocrine pancreatic insufficiency; F32.A Depression, unspecified
CPT/HCPCS: 99284; 96374; 96375; 96361; 74177; 80053; 81003; 81015; 83605; 83690; 85025; Q9967